=== PATIENT | male | born 1960 | race Caucasian/White ===

== ENCOUNTER 2020-06-07 13:11 | Emergency (ER) | payer OTHER ==
[~2020-06-07] VITALS: Ht 182.8 cm; Wt 90.7 kg
[2020-06-07] MEDS ORDERED: Motrin,Rufen800 MG PO (16:01)
[2020-06-07] MEDS ORDERED: CYCLOBENZAPRINE5 M3 PO (16:01)
== END 2020-06-07 16:07 | disposition home or self-care (01) ==
LOC: ED 13:11
DX: S29.012A Strain of muscle and tendon of back wall of thorax, initial encounter (principal); W00.9XXA Unspecified fall due to ice and snow, initial encounter; Y93.89 Activity, other specified; Y92.89 Other specified places as the place of occurrence of the external cause; Y99.8 Other external cause status